=== PATIENT | male | born 1935 | race Caucasian/White ===

== ENCOUNTER 2016-09-05 08:11 | Outpatient (CLI) | payer MEDICARE ==
[~2016-09-05] VITALS: Ht 157.5 cm; Wt 81.6 kg
[2016-09-05] VITALS (16 sets, daily range): BP systolic 160–211; BP diastolic 79–101
[2016-09-05] MEDS ORDERED: ASPI81TA44 PO (08:18)
[2016-09-05] MEDS ORDERED: LISI-334 PO (08:19)
[2016-09-05] MEDS ORDERED: LEVO75TA5 PO (08:19)
[2016-09-05] MEDS ORDERED: PRAV40TA2 PO (08:19)
[2016-09-05 08:35] LABS: BASO % 1 % (0-3); EOS % 2 % (0-3); HEMATOCRIT 41.6 % (39.0-53.0); HEMOGLOBIN 13.8 g/dL (13.0-17.5); LYMPH # 1.9 x10^3/uL (1.0-4.8); LYMPH % 23 % (24-48); MEAN CORPUSCULAR HEMOGLOBIN 29 pg (25-35); MEAN CORPUSCULAR HGB CONC 33 g/dL (31-37); MEAN CORPUSCULAR VOLUME 87 fL (79-100); MONO % 9 % (0-9); NEUT % 66 % (31-73); PLATELET COUNT 189 x10^3/uL (140-400); RED BLOOD COUNT 4.79 x10^6/uL (4.30-5.70); RED CELL DISTRIBUTION WIDTH 15.6 % (11.5-14.5); WHITE BLOOD COUNT 8.4 x10^3/uL (4.0-11.0)
[2016-09-05 08:36] LABS: CALCIUM 8.5 mg/dL (8.5-10.1); CREATININE 0.9 mg/dL (0.7-1.3); GFR 81.2; POTASSIUM 3.8 mmol/L (3.5-5.1)
[2016-09-05 08:47] LABS: PROTHROMBIN TIME PATIENT 12.4 SEC (11.7-14.0)
[2016-09-05] MEDS ORDERED: IOHEXOL 300 MG/ML 100ML VIAL. ONE (09:28)
[2016-09-05] MEDS ORDERED: IODIXANOL 320MG/ML 50ML VIAL. ONE ×2 (09:28→12:00)
[2016-09-05] MEDS ORDERED: LIDOCAINE 1% / SOD BICARB 8.4% 20 ML VIAL. IJ ONE ×2 (09:29→10:15)
[2016-09-05] MEDS ORDERED: IODIXANOL 320 MG/ML 100 ML VIAL. ONE (09:29)
[2016-09-05] MEDS ORDERED: MIDAZOLAM HCL/PF 5 MG/5 ML VIAL. ONE (09:51)
[2016-09-05] MEDS ORDERED: HEPARIN for IV BOLUS 10,000 UNIT/10 ML VIAL. ONE (09:51)
[2016-09-05] MEDS ORDERED: fentaNYL PF VIAL 250 MCG/5 ML VIAL ONE (09:52)
[2016-09-05] MEDS ORDERED: CONTRAST GIVEN MC PRN (10:15)
[2016-09-05] MEDS ORDERED: MIDAZOLAM HCL/PF 5 MG/5 ML VIAL. IV ONE (10:15)
[2016-09-05] MEDS ORDERED: fentaNYL PF VIAL 250 MCG/5 ML VIAL IV ONE (10:15)
[2016-09-05] MEDS ORDERED: IODIXANOL 320 MG/ML 100 ML VIAL. IART ONE (10:15)
[2016-09-05] MEDS ORDERED: IOHEXOL 300 MG/ML 50 ML VIAL. IART ONE (10:15)
[2016-09-05] MEDS ORDERED: LABETALOL 20 MG/4 ML DISP.SYRIN. ONE ×3 (10:32→13:56)
[2016-09-05] MEDS ORDERED: LABETALOL 20 MG/4 ML DISP.SYRIN. IVP ONE (10:45)
[2016-09-05] MEDS ORDERED: ONDANSETRON PF 4 MG/2 ML VIAL. ONE (10:46)
[2016-09-05] MEDS ORDERED: ONDANSETRON PF 4 MG/2 ML VIAL. IV ONE (11:00)
[2016-09-05] MEDS ORDERED: HEPARIN for IV BOLUS 10,000 UNIT/10 ML VIAL. IV ONE ×2 (11:15→12:15)
[2016-09-05] MEDS ORDERED: CLOPIDOGREL BISULFATE 75 MG TABLET PO ONE (13:00)
--- NOTE | 2016-09-05 13:14 | PDOC ---
MODERATE SEDATION ASSESSMENT RISKS/ALTERNATIVES Risks/Alternatives Risks and alternatives of this type of sedation and procedure discussed with: RISK/ALTERNATIVES: Patient H & P ON CHART H & P H & P on chart and reviewed for co-morbid conditions and appropriate labs. H&P ON CHART: Yes STATUS PREG STATUS ASSESSED: N/A MEDS/ALLERGIES REVIEWED Meds/Allergies Reviewed Medications and Allergies including time and route of recently administered narcotics and sedatives. MEDS/ALLERGIES REVIEWED: Yes ASA RATING ASA RATING: II AIRWAY ASSESSMENT Airway Assessment Airway patency, oral function limitations, presence of caps, crowns, dentures, partials, and ability to extend neck assessed. AIRWAY ASSESSMENT: Yes MALLAMPATI SCORE MALLAMPATI SCORE: III PRE-SEDATION ASSESSMENT PRE-SEDATION ASSESSMENT: Yes SAKINA VELARDE MD September 05, 2016 13:14
[2016-09-05] MEDS ORDERED: CLOPIDOGREL BISULFATE 75 MG TABLET ONE (13:24)
--- NOTE | 2016-09-05 13:25 | PDOC1 ---
History and Physical Date of Procedure Date of Admission 09/05/16 Procedure Procedure Abdominal aortogram with lower extremity runoff +/- intervention. Indication Indication 81 YO male with multiple CV risk factors, with known PAD, and with bilateral hip and left calf claudication. Past Medical History Past Medical History See Nursing Pre procedure PMH Past Surgical History Past Surgical History See Nursing Pre Procedure PSH Current Medications Current Medications Current Medications Iodixanol (Visipaque 320) 50 ml STK-MED ONCE .ROUTE ; Start 09/05/16 at 09:28; Stop 09/05/16 at 09:29; Status DC Iohexol (Omnipaque 300 Mg/ml) 100 ml STK-MED ONCE .ROUTE ; Start 09/05/16 at 09: 28; Stop 09/05/16 at 09:29; Status DC Lidocaine/Sodium Bicarbonate (Buffered Lidocaine 1%) 20 ml STK-MED ONCE IJ ; Start 09/05/16 at 09:29; Stop 09/05/16 at 09:30; Status DC Heparin Sodium/ Sodium Chloride 1,000 ml @ As Directed STK-MED ONCE .ROUTE ; Start 09/05/16 at 09:29; Stop 09/05/16 at 09:30; Status DC Iodixanol (Visipaque 320) 100 ml STK-MED ONCE .ROUTE ; Start 09/05/16 at 09:29; Stop 09/05/16 at 09:30; Status DC Heparin Sodium (Porcine) (Heparin Sodium) 10,000 unit STK-MED ONCE .ROUTE ; Start 09/05/16 at 09:51; Stop 09/05/16 at 09:52; Status DC Midazolam HCl (Versed) 5 mg STK-MED ONCE .ROUTE ; Start 09/05/16 at 09:51; Stop 09/05/16 at 09:52; Status DC Fentanyl Citrate (Fentanyl 5ml Vial) 250 mcg STK-MED ONCE .ROUTE ; Start at 09:52; Stop 09/05/16 at 09:53; Status DC Heparin Sodium/ Sodium Chloride 1,000 unit 1X ONCE IART Last administered on t 12:40; Start 09/05/16 at 10:15; Stop 09/05/16 at 10:16; Status DC Lidocaine/Sodium Bicarbonate (Buffered Lidocaine 1%) 20 ml 1X ONCE IJ Last administered on 09/05/16 12:42; Start 09/05/16 at 10:15; Stop 09/05/16 at 10:16 ; Status DC Midazolam HCl (Versed) 5 mg 1X ONCE IV Last administered on 09/05/16 12:43; Start 09/05/16 at 10:15; Stop 09/05/16 at 10:16; Status DC Fentanyl Citrate (Fentanyl 5ml Vial) 250 mcg 1X ONCE IV Last administered on 12:43; Start 09/05/16 at 10:15; Stop 09/05/16 at 10:16; Status DC Iohexol (Omnipaque 300 Mg/ml) 50 ml 1X ONCE IART Last administered on 12:41; Start 09/05/16 at 10:15; Stop 09/05/16 at 10:16; Status DC Iodixanol (Visipaque 320) 100 ml 1X ONCE IART Last administered on 09/05/16 12:41; Start 09/05/16 at 10:15; Stop 09/05/16 at 10:16; Status DC Info (Do NOT chart on this entry -- for MONITORING) 1 each PRN DAILY PRN MC SEE COMMENTS; Start 09/05/16 at 10:15; Stop 09/07/16 at 10:14 Labetalol HCl (Normodyne) 20 mg STK-MED ONCE .ROUTE ; Start 09/05/16 at 10:32; Stop 09/05/16 at 10:33; Status DC Labetalol HCl (Normodyne) 20 mg 1X ONCE IVP Last administered on 09/05/16 12: 44; Start 09/05/16 at 10:45; Stop 09/05/16 at 10:47; Status DC Ondansetron HCl (Zofran) 4 mg STK-MED ONCE .ROUTE ; Start 09/05/16 at 10:46; Stop 09/05/16 at 10:47; Status DC Ondansetron HCl (Zofran) 4 mg 1X ONCE IV Last administered on 09/05/16 12:45 ; Start 09/05/16 at 11:00; Stop 09/05/16 at 11:01; Status DC Heparin Sodium (Porcine) (Heparin Sodium) 5,000 unit 1X ONCE IV Last administered on 09/05/16 12:48; Start 09/05/16 at 11:15; Stop 09/05/16 at 11:16 ; Status DC Iodixanol (Visipaque 320) 50 ml STK-MED ONCE .ROUTE ; Start 09/05/16 at 12:00; Stop 09/05/16 at 12:01; Status DC Heparin Sodium (Porcine) (Heparin Sodium) 2,500 unit 1X ONCE IV Last administered on 09/05/16t 12:49; Start 09/05/16 at 12:15; Stop 09/05/16 at 12:16 ; Status DC Labetalol HCl (Normodyne) 20 mg STK-MED ONCE .ROUTE ; Start 09/05/16 at 12:21; Stop 09/05/16 at 12:22; Status DC Clopidogrel Bisulfate (Plavix) 600 mg 1X ONCE PO ; Start 09/05/16 at 13:00; Stop 09/05/16 at 13:10; Status DC Clopidogrel Bisulfate (Plavix) 75 mg DAILYWBKFT PO ; Start 09/06/16 at 08:00; Stop 11/06/16 at 08:00 Labetalol HCl (Normodyne) 10 mg PRN Q15MIN PRN IVP HYPERTENSION, SEE COMMENTS; Start 09/05/16 at 13:00; Stop 09/06/16 at 12:59 Active Scripts Active Reported Levothyroxine Sodium 75 Mcg Tablet 1 Tab PO DAILY Pravastatin Sodium 40 Mg Tablet 1 Tab PO DAILY Lisinopril 20 Mg Tablet 1 Tab PO DAILY Children's Aspirin (Aspirin) 81 Mg Tab.chew 81 Mg PO DAILY Allergies Allergies: Coded Allergies: No Known Drug Allergies (Unverified , 09/05/16) Physical Exam Vital Signs Vital Signs Date Time Temp Pulse Resp B/P (MAP) Pulse Ox O2 Delivery O2 Flow Rate FiO2 09/05/16 12:44 76 178/86 09/05/16 12:43 26 75 Nasal Cannula 2.0 09/05/16 08:44 98.0 98.0 Lungs: Clear to auscultation Heart: Regular rate Neuro: Normal gait Vascular 2+ rt SCREEN WRITER pulse. 1+ left SCREEN WRITER pulse. 2+ right distal pulses. +/- left distal pulses. No ischemic foot ulcerations. Diagnostic Data/Imaging Images Prior [facility] arteriogram from 2004 personally reviewed. Assessment Assessment 81 YO male with CV risk factors, with known PAD, and with bilateral hip and left calf claudication. 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 Problems: Plan Plan Diagnostic angio +/- intervention, as indicated. SAKINA VELARDE MD September 05, 2016 13:24
--- NOTE | 2016-09-05 13:34 | PDOC ---
Exam Professional Volleyball Player Professional Volleyball Player Yimi Flight Engineer Manager Flight Engineer Manager F Ndumbu Pre-Procedure Diagnosis Pre-Procedure Diagnosis 81 YO male with CV risk factors, with known PAD, and with bilateral hip/buttock and left calf claudication. Post-Procedure Diagnosis Post-Procedure Diagnosis Same---see radiology report. Procedure Performed Procedure Performed Abdominal aortogram with selective left hypogastric and left lower extremity angio. ASSISTANT RESTAURANT GENERAL MANAGER/Stent left SFA occlusion. ASSISTANT RESTAURANT GENERAL MANAGER origin left hypogastric artery stenosis. ASSISTANT RESTAURANT GENERAL MANAGER left AILEEN + EIA. Type of Anesthesia Type of Anesthesia Local + Mod sedation Estimated Blood Loss EBL: 50 cc Condition of Patient Condition of Patient Stable. No apparent complication. Improved left hypo perfusion and improved left foot/ankle pulses post procedure. Significant intra-procedure HTN, managed with Labetalol. Disposition Disposition Discharge home from [facility] post recovery from mod sedation, if no bleeding or lower extremity ischemia. F/U with Dr Garcia for PAD and for adjustment of BP meds. ASA for life. Plavix x 2 months. Full report to follow. SAKINA VELARDE MD September 05, 2016 13:34
[2016-09-05] MEDS: LABETALOL 20 MG/4 ML DISP.SYRIN. IVP PRN ×2 (13:38→14:06)
[2016-09-05] MEDS ORDERED: CLOP75TA PO ×2 (14:51→14:52)
[2016-09-05] MEDS ORDERED: CLOP75TA27 PO (15:52)
[2016-09-06] MEDS ORDERED: CLOPIDOGREL BISULFATE 75 MG TABLET PO SCH (08:00)
--- NOTE | 2016-09-06 14:58 | RAD ---
Abdominal aortogram with selective left lower extremity arteriogram SALES ENABLEMENT ANALYST followed by stenting of left SFA chronic total occlusion Origin left hypogastric artery stent placement SALES ENABLEMENT ANALYST left common iliac and external iliac arteries Indication: 81-year-old hypertensive previous smoker with bilateral hip/buttock claudication and with left calf pain. He has known PAD, as demonstrated on a prior [facility] arteriogram from 04/09/2005, which revealed bilateral common iliac and external iliac artery stenoses, as well as complete right hypogastric artery occlusion and 80% origin left hypogastric artery stenosis. A more recent duplex Doppler ultrasound examination from 11/16/2013 suggested short segment left superficial femoral artery occlusion. Diagnostic arteriogram, with possible intervention, has been requested. Fluoroscopy time: 38.9 minutes Kerma-area Product: 712 Gycm2 Contrast material: 61 cc Omnipaque 300. 136 cc Visipaque 320. Anesthesia: 122 minutes moderate sedation was provided utilizing a total of 2.5 mg Versed and 100 mcg fentanyl, IV. The patient was appropriately monitored by a qualified independent observer throughout the time of moderate sedation. Consent: The procedure was explained in its entirety to the patient and/or the patient's designated patient care representative by a member of the treatment team. This included a discussion of risks and benefits and commonly accepted alternatives to the procedure, as well as expected consequences of no treatment at all. Discussion of risks included, but was not limited to, those that are most frequent and those that are rare, but possibly severe or life-threatening, as well as the possibility of unforeseen complications. Sterility: All elements of maximal sterile barrier technique were utilized, including cap, mask, sterile gown, sterile gloves, large sterile sheet, appropriate hand hygiene, and 2% chlorhexidine for cutaneous antisepsis. Additional IV medications: The patient was treated for intraprocedure nausea with IV Zofran and for intraoperative procedure severe hypertension with IV labetalol. Procedure: Informed consent was obtained from the patient. He was placed supine on the angiography table. Preliminary ultrasound examination of right groin revealed wide patency of right common femoral artery, which was documented with a single hard copy ultrasound image. Right groin was then prepped and draped in the usual sterile fashion, utilizing all elements of maximal sterile barrier technique, as described above. Moderate sedation was provided with IV Versed and fentanyl. Using aseptic technique, local anesthesia, direct ultrasound guidance, and the micropuncture system, a 5 [place] right common femoral artery sheath was successfully introduced. Abdominal aortogram: A 5 [place] Omni Flush catheter was advanced through the right groin sheath and was positioned within suprarenal abdominal aorta. Omnipaque 300 was injected and abdominal aortogram DSA images were obtained. Findings: There is diffuse aortoiliac vascular calcification. Distal infrarenal abdominal aorta shows fusiform ectasia, without definite aneurysmal dilatation. No hemodynamically significant renal artery stenosis is identified. Celiac trunk, SMA, and RADHA are opacified. Oblique pelvis injections: The Omni Flush catheter was withdrawn into terminal abdominal aorta, just above bifurcation. Omnipaque 300 was injected and DSA images were obtained over pelvis in MONEGASQUE and NAYLOR projections. Left side findings: Proximal segment of left common iliac artery shows moderate smooth narrowing. Mid segment of left common iliac artery shows fusiform ectasia, with irregular ulcerative plaque formation. Severe narrowing at origin of left hypogastric artery is associated with poststenotic dilatation. Focal moderate stenosis lies within proximal left external iliac artery, which is otherwise widely patent. Right side findings: There is moderate irregular narrowing at origin of right common iliac artery, which otherwise shows fusiform ectasia, with ulcerative plaquing. Right hypogastric artery is completely occluded at its origin. There is minor in-stent restenosis within a previously placed (at an outside institution) self expanding proximal right external iliac artery stent. Mid-distal right external iliac artery is widely patent. Left lower extremity arteriogram: The 5 [place] Omni Flush catheter was exchanged over a Glidewire for a 4 [place] Cobra 2 catheter, which was inserted through the 5 [place] right groin sheath and was directed across aortic bifurcation into contralateral left common femoral artery. Visipaque was injected and DSA images were obtained over left groin in the steep MONEGASQUE projection. Additional Visipaque was injected and digital angiographic images were obtained from groin through foot. Findings: Left common femoral artery, bifurcation, and deep femoral artery are widely patent. Multifocal areas of mild narrowing are present within proximal-mid left SFA, followed by a 6 cm segment of chronic total occlusion within distal left SFA, with multiple well-developed collateral vessels. Reconstituted left popliteal artery is widely patent. Large caliber left anterior tibial artery is widely patent from origin through dorsalis pedis artery/plantar arch. Left tibioperoneal trunk is widely patent. A very tiny vessel, which could represent hypoplastic posterior tibial artery, arises from tibioperoneal trunk and extends along expected posterior tibial artery pathway to a level just above ankle. Large caliber peroneal artery is widely patent from origin through distal calf, and provides reconstitution of large caliber distal left posterior tibial artery, just above ankle. Endovascular recanalization of distal left SFA chronic total occlusion: Given left calf claudication, distal left SFA arterial intervention was considered indicated. The 4 [place] Cobra 2 catheter, previously positioned within contralateral left common femoral artery, was removed over a [employer] advantage guidewire, which was positioned within mid left superficial femoral artery. The 5 [place] right common femoral artery sheath was then exchanged over the advantage wire for a 6 [place] 65 cm long destination sheath, which was directed over the aortic bifurcation and was positioned with its tip within mid left SFA. A [place] catheter was then advanced through the destination sheath over the advantage wire. Subsequently, utilizing fluoroscopic guidance and road mapping technique, the [place]/advantage guidewire combination was successfully directed through the chronically occluded distal left SFA into mid left popliteal artery. Satisfactory intraluminal position of the [place] catheter within mid left popliteal artery was confirmed with a contrast injection. The [place] catheter was then removed over a long grand slam microguidewire, which was positioned with its tip within distal left popliteal artery. Following IV bolus administration of 5000 units heparin, a 4 mm x 120 mm Cordis chocolate SALES ENABLEMENT ANALYST balloon was advanced through the destination sheath over the grand slam wire and was utilized to perform preliminary balloon dilatation of the occluded distal left SFA to a peak pressure of 12 nathan for 3 minutes. The 4 mm chocolate SALES ENABLEMENT ANALYST balloon was then exchanged over the grand slam wire for a larger 6 mm x 80 mm chocolate SALES ENABLEMENT ANALYST balloon, which was utilized to perform further balloon dilatation of distal left SFA to a peak pressure of 12 nathan for 3 minutes. The 6 mm chocolate SALES ENABLEMENT ANALYST balloon was then deflated and removed. Visipaque was injected through the destination sheath and post angioplasty DSA images were obtained, which revealed successful recanalization of the occluded distal left SFA, however, areas of flow-limiting dissection were noted. Therefore, stent placement was considered indicated. A 7 mm x 80 mm Cordis control Smart stent was selected, was advanced through the destination sheath over the grand slam wire, and was carefully deployed across distal left SFA utilizing magnification fluoroscopic guidance. Post dilatation of the SMART stent was then performed utilizing a 6 mm x 80 mm chocolate SALES ENABLEMENT ANALYST balloon, inflated to a peak pressure of 12 nathan. Completion DSA images revealed widely patent distal left SFA, without residual dissection, without thrombosis, and without distal embolization. Left hypogastric artery stent placement: Given this patient's bilateral hip pain and buttock claudication in the setting of complete right hypogastric artery occlusion, angioplasty and/or stenting of the severe origin left hypogastric artery stenosis was considered indicated. The 6 [place]i destination sheath, previously positioned within mid left SFA, was slowly withdrawn into distal left common iliac artery under fluoroscopic control. Visipaque was injected through the sheath and DSA images were obtained over left hemipelvis in the NAYLOR projection. Those images confirmed severe, 80-90% stenosis at origin of left hypogastric artery, followed by poststenotic dilatation. A 4 [place] Berenstein catheter was advanced through the destination sheath and was successfully directed across the severe origin left hypogastric artery stenosis over a Glidewire. The Berenstein catheter was then removed over a grand slam guidewire. A 5 mm right 15 mm Cordis Palmaz blue balloon expandable stent was then advanced through the destination sheath over the grand slam wire. The stent was then carefully positioned across origin left hypogastric artery, utilizing control contrast injections. The stent was then deployed, with delivery balloon inflation to slightly above burst pressure. Visipaque was then injected through the destination sheath, and post stent DSA images were obtained. Those images revealed significantly improved caliber of the severe origin hypogastric artery stenosis, without dissection. However, despite maximum pressure balloon inflation, the stent could not be completely expanded, resulting in 30-40% residual stenosis. Use of a larger, higher pressure balloon was considered, but was not attempted, due to concern for hypogastric artery rupture. Left common iliac artery and external iliac artery SALES ENABLEMENT ANALYST: Attention was then turned to moderate left common iliac artery and external iliac artery stenoses. The grand slam guidewire, utilized for the left hypogastric artery stent placement, was removed over the 6 [place] destination sheath, which was left in place within distal left common iliac artery. A [employer] advantage guidewire was then advanced through the destination sheath into proximal left superficial femoral artery. Following IV bolus administration of an additional 2500 units heparin, an 8 mm x 40 mm conquest SALES ENABLEMENT ANALYST balloon was advanced through the destination sheath over the advantage wire, and was utilized to perform balloon dilatation of the focal proximal left external iliac artery stenosis to a peak pressure of 12 nathan for 2 minutes. The destination sheath was then withdrawn into aortic bifurcation. The 8 mm conquest SALES ENABLEMENT ANALYST balloon was then repositioned across proximal left common iliac artery and was inflated to a peak pressure of 12 nathan for 2 minutes. The SALES ENABLEMENT ANALYST balloon was then deflated and removed. Visipaque was injected through the destination sheath and completion DSA images were obtained. Those images revealed significantly improved caliber of proximal left common iliac artery and proximal left external iliac artery, without complicating dissection. Patient tolerated the procedures well without apparent complication. Hemostasis was achieved at the right groin puncture site utilizing the Mynx closure system. Impression: 1. Fusiform calcific ectasia of distal abdominal aorta, without aneurysmal dilatation. 2. Moderate proximal left common iliac artery stenosis stenosis, fusiform mid left common iliac artery ectasia with ulceration, focal 80-90% origin left hypogastric artery stenosis, and moderate proximal left external iliac artery stenosis. Origin left hypogastric artery stenting and balloon angioplasty of proximal left common and external iliac artery stenoses was performed, as described. 3. Moderate proximal right common iliac artery stenosis, at least moderate mid-distal right common iliac artery fusiform ectasia with ulceration, complete right hypogastric artery origin occlusion, and minimal in-stent restenosis within previously placed proximal right external iliac artery stenosis. 4. 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 5. Satisfactory, brisk two-vessel left lower extremity distal runoff is provided via large caliber anterior tibial and peroneal arteries, as described. 6. In the presence of complete right hypogastric artery occlusion, percutaneous stenting of severe left hypogastric artery origin stenosis may or may not provide symptomatic improvement in this patient's bilateral hip/buttock claudication. 7. Due to contrast limitations, right lower extremity angiography was not performed. If the patient develops right thigh or calf claudication, right lower stent arteriogram, with possible intervention, could be scheduled.
== END 2016-09-05 17:09 | disposition home or self-care (01) ==
LOC: INTRAD 08:11
PROVIDERS: ATTEND Family Medicine
DX: I70.292 Other atherosclerosis of native arteries of extremities, left leg (principal); I74.5 Embolism and thrombosis of iliac artery; I73.9 Peripheral vascular disease, unspecified; I10 Essential (primary) hypertension; E03.9 Hypothyroidism, unspecified; Z86.73 Personal history of transient ischemic attack (TIA), and cerebral infarction without residual deficits; Z85.46 Personal history of malignant neoplasm of prostate
CPT/HCPCS: 36415; 37220; 37221; 37226; 75625; 75710; 75774; 76937; 80048; 82947; 85027; 85610; C1713; C1725; C1760; C1769; C1892; C1894; J2250; J2405; J3010; J3490; Q9967; G0269

== ENCOUNTER → 2021-04-27 | Outpatient (CLI) | payer MEDICARE ==
[2016-09-05 17:05] VITALS: BP 175/87
[~2021-04-27] MED LIST: ASPI81TA59 PO; CLOP75TA PO; CLOP75TA57 PO; LEVO75TA5 PO; LISI20TA18 PO; PRAV40TA2 PO
--- NOTE | 2021-04-27 16:23 | KCIC ---
EXAMINATION: Magnetic resonance imaging (MRI) of the brain and brainstem without contrast 04/27/2021 3:15 PM HISTORY: CVA. Weakness in the legs. Right-sided weakness. TECHNIQUE: Multiplanar multi-weighted MRI of the brain and brainstem was performed without intravenou s contrast using the general brain protocol. COMPARISON: None available. FINDINGS: The scalp and calvarium are normal. The superior sagittal sinus demonstrates normal venous flow. The corpus callosum is normal in shape and signal intensity. Remote bilateral lacunar infarcts identifie d within the cerebellum. Remote lacunar infarct identified in the left anterior basal ganglia. The pi tuitary and sella are normal. The brainstem and craniocervical junction are unremarkable. There are T2/FLAIR signal hyperintense foci in the periventricular and subcortical white matter with areas of c onfluence most suggestive of moderate chronic small vessel ischemic changes. Remote ischemic changes are identified in the medial left occipital lobe and posterior left temporal lobe. Small territory re mote ischemic changes identified within the post central gyri bilaterally and left middle frontal gyr us. There is diffusion signal hyperintensity involving the left hardik. There is associated FLAIR and T2 si gnal hyperintensity suggestive of cytotoxic edema. No associated mass effect or midline shift. The putnam sceptibility weighted sequences reveal no evidence of acute or chronic hemorrhage. Ventricles, sulci and basal cisterns are prominent compatible with moderate generalized cerebral volume loss. Small mucus retention cyst identified in the right maxillary sinus. The visualized portions of the m astoids are unremarkable. The orbits appear normal with exception of bilateral lens replacement. Nor mal flow voids are demonstrated in the carotid arteries and basilar artery. IMPRESSION: 1. Acute to subacute ischemic changes identified within the left hardik with associated cytotoxic edema . No associated mass effect, midline shift or hemorrhage. 2. Multifocal small territory remote ischemic changes identified in multiple different vascular ting tories. Correlate with underlying vascular dementia. 3. There are T2/FLAIR signal hyperintense foci in the periventricular and subcortical white matter wi th areas of confluence most suggestive of moderate chronic small vessel ischemic changes. FOR INTERNAL CODING PURPOSES Critical result: Findings discussed with Jimena at the office of RAFFAELE BURT MD at 04/27/2021 4:20 PM. RESULT CODE: (C) Electronically signed by: Ritu Garcia MD (04/27/2021 4:20 PM) [id number]
== END ==
LOC: KCIC MRI 14:49
PROVIDERS: ATTEND Family Medicine
DX: I67.82 Cerebral ischemia (principal); J34.1 Cyst and mucocele of nose and nasal sinus; I63.9 Cerebral infarction, unspecified
CPT/HCPCS: 70551

== ENCOUNTER → 2021-04-27 | Outpatient (CLI) | payer MEDICARE ==
[2016-09-05 17:05] VITALS: BP 175/87
--- NOTE | 2021-04-27 14:58 | RAD ---
EXAM: Carotid Doppler sonogram. HISTORY: Cerebral infarction. Atherosclerosis. TECHNIQUE: Simons scale and color Doppler sonographic evaluation of the neck with spectral waveform alberto lysis was performed and static images are submitted for review. FINDINGS: There is mild partially calcified atherosclerotic plaque involving the common carotid arter ies and carotid bifurcations. The peak systolic velocity within the right common carotid artery is 74 cm/sec. The peak systolic jhoana ocity within the right internal carotid artery is 59 cm/sec and the end diastolic velocity within the right internal carotid artery is 12 cm/sec. The right ICA/CCA ratio is 0.8. The peak systolic velocity within the left common carotid artery is 117 cm/sec. The peak systolic jhoana ocity within the left internal carotid artery is 89 cm/sec and the end diastolic velocity within the left internal carotid artery is 15 cm/sec. The left ICA/CCA ratio is 0.76. There is normal antegrade flow within both vertebral arteries. There are elevated peak systolic veloc ities within the external carotid arteries, measuring 184 cm/s on the right and 171 cm/s on the left. IMPRESSION: 1. Doppler findings consistent with less than 50 percent stenosis involving the internal carotid lloyd scott 2. Doppler findings suggesting stenosis involving the external carotid arteries. 3. Partially calcified atherosclerotic plaque involving the common carotid arteries and carotid bifur cations. PQRS Compliance Statement - Stenosis calculations for CT, MR and conventional angiography are based u monroe measurement of the distal ICA diameter in accordance with the NASCET methodology. Stenosis calcu lations for carotid ultrasound studies are derived from validated velocity criteria which are known t o correlate with the NASCET methodology. Electronically signed by: Kelley Chen MD (04/27/2021 2:56 PM) [id number]
== END ==
LOC: US 13:51
PROVIDERS: ATTEND Family Medicine
DX: I65.23 Occlusion and stenosis of bilateral carotid arteries (principal); I63.9 Cerebral infarction, unspecified
CPT/HCPCS: 93880